=== PATIENT | male | born 1985 | race Caucasian/White ===

== ENCOUNTER 2024-06-07 15:22 | Emergency (ER) | payer MEDICAID ==
[~2024-06-07] VITALS: Ht 170.2 cm; Wt 113.4 kg
[2024-06-07 15:50] VITALS: BP 108/69; PULSE 88; RESP 18; TEMP 98; O2SAT 98
[2024-06-07] MEDS: LIDOCAINE MPF 1% 10 MG/ML VIAL INJ ONE (16:28)
[2024-06-07] MEDS: IBUPROFEN 600 MG TAB PO ONE (16:30)
[2024-06-07] MEDS ORDERED: BACI-418 TP (16:53)
[2024-06-07] MEDS ORDERED: IBUP-1842 PO (16:53)
[2024-06-07 17:40] VITALS: BP 108/69; PULSE 88; RESP 18; TEMP 98; O2SAT 98
== END 2024-06-07 17:40 | disposition home or self-care (01) ==
LOC: MED 15:22
DX: S91.112A Laceration without foreign body of left great toe without damage to nail, initial encounter (principal); J45.909 Unspecified asthma, uncomplicated; E11.9 Type 2 diabetes mellitus without complications; E78.5 Hyperlipidemia, unspecified; I10 Essential (primary) hypertension; Z79.899 Other long term (current) drug therapy; W20.8XXA Other cause of strike by thrown, projected or falling object, initial encounter; Y93.89 Activity, other specified; Y92.89 Other specified places as the place of occurrence of the external cause; Y99.8 Other external cause status
CPT/HCPCS: 12001; 73630; 90471; 90715; 99283; J2001

== ENCOUNTER 2024-06-24 09:13 | Emergency (ER) | payer MEDICAID ==
[~2024-06-24] VITALS: Ht 170.2 cm; Wt 119.5 kg
[~2024-06-24 09:13] MED LIST: BACI-418 TP; IBUP-1842 PO
[2024-06-24 09:17] VITALS: BP 117/78; PULSE 80; RESP 19; TEMP 97.7; O2SAT 96
[2024-06-24 09:20] VITALS: O2SAT 96
== END 2024-06-24 09:30 | disposition home or self-care (01) ==
LOC: MED 09:13
DX: S91.112D Laceration without foreign body of left great toe without damage to nail, subsequent encounter (principal); Z48.00 Encounter for change or removal of nonsurgical wound dressing; Z79.1 Long term (current) use of non-steroidal anti-inflammatories (NSAID); Z79.2 Long term (current) use of antibiotics; X58.XXXD Exposure to other specified factors, subsequent encounter
CPT/HCPCS: 99281